=== PATIENT | female | born 1995 | race Caucasian/White ===

== ENCOUNTER 2018-10-10 19:10 | Emergency (ER) | payer SELFPAY ==
[~2018-10-10] VITALS: Ht 157.5 cm; Wt 95.5 kg
[2018-10-10 19:27] VITALS: Ht 157.5 cm; Wt 95.5 kg
[2018-10-10] MEDS ORDERED: IBUPROFEN 600 MG TAB PO ONE (22:00)
[2018-10-10] MEDS ORDERED: IBUP-1542 PO (23:31)
[2018-10-10 23:35] VITALS: BP 117/61; PULSE 67; RESP 18
--- NOTE | 2018-10-10 23:38 | ERD ---
ER Documentation Chief Complaint Chief Complaint LOWER AP X'S 1 DAY HPI Patient is a 23-year-old female, no past medical history, presents to the ER for concerns of pelvic pain x1 day. Patient denies fevers or chills. Patient denie s any nausea or vomiting. Patient states the pain is localized to her site. Patient had a 5 months ago. Patient does admit to dysuria however she denies any frequency, urgency or flank pain. Patient denies any vaginal bleeding however states she does have irregular periods. Last menstrual period was 2 months ago. Patient denies any nausea, vomiting, or diarrhea. Patient denies any chest pain or shortness of breath. Patient has not taken any medications for symptoms. ROS All systems reviewed and are negative except as per history of present illness. Medications Home Meds Active Scripts Ibuprofen* (Motrin*) 600 Mg Tab, 600 MG PO Q6, #30 TAB Prov:NING TALLEY PA-C 10/10/18 Allergies Allergies: Coded Allergies: No Known Allergy (Unverified , 10/10/18) PMhx/Soc History of Surgery: Yes () Hx Alcohol Use: No Hx Substance Use: No Hx Tobacco Use: No Smoking Status: Never smoker FmHx Family History: No diabetes Physical Exam Vitals Vital Signs Date Temp Pulse Resp B/P (MAP) Pulse Ox O2 O2 Flow FiO2 Time Delivery Rate 10/10/18 98.0 76 18 116/71 97 19:27 (86) Physical Exam GENERAL: Well-developed, well-nourished female. Appears in no acute distress. HEAD: Normocephalic, atraumatic. EYES: Pupils are equally reactive bilaterally. EOMs grossly intact. No conjunctival erythema. ENT: Moist mucous membranes. No uvula deviation. No kissing tonsils. NECK: Supple. No meningismus. Normal range of motion of the neck. LUNG: Clear to auscultation bilaterally. No rhonchi, wheezing, rales or coarse breath sounds. HEART: Regular rate and rhythm. No murmurs, rubs or gallops. ABDOMEN: line appears to be healing well. No erythema or warmth. Wound dehiscence. Tender to palpation in the suprapubic region. Soft, and nondistended. Positive bowel sounds in all four quadrants. No rebound tenderness, no guarding. (-) McBurney's point tenderness. No CVA tenderness. EXTREMITIES: Equal pulses bilaterally. No peripheral clubbing, cyanosis or edema. No unilateral leg swelling. NEUROLOGIC: Alert and oriented. Moving all four extremities without any difficulty. Normal speech. Steady gait. SKIN: Normal color. Warm and dry. No rashes or lesions. Result Diagram: 10/10/18215410/10/182154 Results 24 hrs Laboratory Tests Test 10/10/18 21:34 10/10/18 21:35 10/10/18 21:55 10/10/18 21:56 POC Beta HCG, NEGATIVE NEGATIVE Qualitative Bedside Urine pH 5.5 (LAB) Bedside Urine Negative Protein (LAB) Bedside Urine Negative Glucose (UA) Bedside Urine Negative Ketones (LAB) Bedside Urine Blood 1+ Bedside Urine Negative Nitrite (LAB) Bedside Urine Negative Leukocyte Esterase (L White Blood Count 10.6 10^3/ul Red Blood Count 4.96 10^6/ul Hemoglobin 13.8 g/dl Hematocrit 41.6 % Mean Corpuscular 83.9 fl Volume Mean Corpuscular 27.8 pg Hemoglobin Mean Corpuscular 33.2 g/dl Hemoglobin Concent Red Cell 12.5 % Distribution Width Platelet Count 332 10^3/UL Mean Platelet 11.2 fl Volume Immature 0.400 % Granulocytes % Neutrophils % 71.7 % Lymphocytes % 21.4 % Monocytes % 4.7 % Eosinophils % 1.5 % Basophils % 0.3 % Nucleated Red Blood 0.0 /100WBC Cells % Immature 0.040 10^3/ul Granulocytes # Neutrophils # 7.6 10^3/ul Lymphocytes # 2.3 10^3/ul Monocytes # 0.5 10^3/ul Eosinophils # 0.2 10^3/ul Basophils # 0.0 10^3/ul Nucleated Red Blood 0.0 10^3/ul Cells # Sodium Level 139 mmol/L Potassium Level 4.4 mmol/L Chloride Level 104 mmol/L Carbon Dioxide 26 mmol/L Level Anion Gap 9 Blood Urea Nitrogen 13 mg/dl Creatinine 0.76 mg/dl Est Glomerular > 60 mL/min Filtrat Rate mL/min Glucose Level 102 mg/dl Calcium Level 9.9 mg/dl Total Bilirubin 0.3 mg/dl Direct Bilirubin 0.00 mg/dl Indirect Bilirubin 0.3 mg/dl Aspartate Amino 42 IU/L Transf (AST/SGOT) Alanine 59 IU/L Aminotransferase (A LT/SGPT) Alkaline 99 IU/L Phosphatase Total Protein 7.8 g/dl Albumin 4.5 g/dl Globulin 3.30 g/dl Albumin/Globulin 1.36 Ratio Lipase 85 U/L Test 10/10/18 21:57 Bedside Urine pH 5.5 (LAB) Bedside Urine Negative Protein (LAB) Bedside Urine Negative Glucose (UA) Bedside Urine Negative Ketones (LAB) Bedside Urine Blood 1+ Bedside Urine Negative Nitrite (LAB) Bedside Urine Negative Leukocyte Esterase (L Current Medications Medications Dose Sig/Portillo Start Time Status Last (Trade) Ordered Route PRN Stop Time Admin Dose Reason Admin Ibuprofen 600 mg ONCE ONCE 10/10/18 DC 10/10/18 (Motrin) PO 22:00 21:54 10/10/18 22:01 Procedures/MDM ED COURSE: The patient was stable throughout ED course. I kept the patient and/or family informed of laboratory and diagnostic imaging results throughout the ED course. DIAGNOSTIC IMAGING: Read by radiologist. DIAGNOSTIC IMAGING REPORT Patient: DAMIAN RUFF : 1995 Age: 23 Sex: F MR #: [id number] DOS: 10/10/18 2148 Ordering MD: NING TALLEY PA-C Location: [facility] Room/Bed: PROCEDURE: US Pelvis CLINICAL INDICATION: Pelvic pain. TECHNIQUE: Sonographic evaluation of the pelvis was performed utilizing both transabdominal and transvaginal technique. Curved array transabdominal transducer technique as well as a high frequency endovaginal probe was utilized. Images were reviewed on the high-resolution PACS workstation. COMPARISON: No prior studies are available for comparison. FINDINGS: The uterus is the visualized and measuring 6 x 3.2 x 4.7 cm in dimension. The endometrium measures 0.8 cm in diameter. The right ovary measures 3.1 x 2 x 3.5 cm and 11.4 cc in volume. The left ovary measures 3.3 x 2.5 x 3.6 cm and 15.9 cc in volume. There are no adnexal ma sses. There is no significant free fluid in the pelvis. Nabothian cysts are seen in the cervix. IMPRESSION: 1. Unremarkable pelvic ultrasound. 2. Nabothian cervical cysts. RPTAT: HH .Dalia Reyes MD, MD Date Time Electronically viewed and signed by .Dalia Reyes MD, MD on 10/10/2018 23:13 .N/ CC: NING TALLEY PA-C [id number] PROCEDURES: None. MEDICAL DECISION MAKING: This is a 23-year-old female who presents to the ER for concerns of pelvic pain x1 day. Vital signs were reviewed. Patient is afebrile. CBC showed no evidence of systemic infection or severe anemia. CMP showed no evidence of electrolyte abnormalities, severe acidosis, alkalosis, renal failure, or liver disease. Lipase showed no evidence of acute pancreatitis. UA showed no evidence of acute infection, 1+ blood was noted.. Urine test was negative. Pelvic ultrasound was unremarkable. See formal report above. At this time, patient's presentation is most consistent with pelvic pain. Differential diagnosis include was not limited to acute coronary syndrome, AAA, mesenteric ischemia, lower lobe pneumonia, DKA, bowel perforation, cholecystitis, choledocholithiasis, ascending cholangitis, hepatic abscess, pancreatitis, PUD, gastritis, GERD, splenic rupture, diverticulitis, UTI, pyelonephritis, nephrolithiasis, appendicitis, constipation, , ectopic , PID, ovarian torsion or tubo-ovarian abscess. PRESCRIPTIONS: Ibuprofen DISCHARGE: At this time, patient is stable for discharge and outpatient management. I have instructed the patient to follow-up with his/her primary care physician in 1-2 days. I have instructed the patient to promptly return to the ER at any time for any new or worsening symptoms including increased pain, nausea, vomiting, diar magnolia, fever, weakness or LOC. The patient and/or family expressed understanding of and agreement with this plan. All questions were answered. Home care instructions were provided. Disclaimer: Inadvertent spelling and grammatical errors are likely due to EHR/dictation software use and do not reflect on the overall quality of patient care. Also, please note that the electronic time recorded on this note does not necessarily reflect the actual time of the patient encounter. Departure Diagnosis: Primary Impression: Pelvic pain Condition: Fair Patient Instructions: Pelvic Pain, Unknown Cause Referrals: [facility] YOU HAVE RECEIVED A MEDICAL SCREENING EXAM AND THE RESULTS INDICATE THAT YOU DO NOT HAVE A CONDITION THAT REQUIRES URGENT TREATMENT IN THE EMERGENCY DEPARTMENT. FURTHER EVALUATION AND TREATMENT OF YOUR CONDITION CAN WAIT UNTIL YOU ARE SEEN IN YOUR DOCTORS OFFICE WITHIN THE NEXT 1-2 DAYS. IT IS YOUR RESPONSIBILITY TO MAKE AN APPOINTMENT FOR FOLOW-UP CARE. IF YOU HAVE A PRIMARY DOCTOR --you should call your primary doctor and schedule an appointment IF YOU DO NOT HAVE A PRIMARY DOCTOR YOU CAN CALL OUR PHYSICIAN REFERRAL HOTLINE AT IF YOU CAN NOT AFFORD TO SEE A PHYSICIAN YOU CAN CHOSE FROM THE FOLLOWING [facility] [address] [facility]. [facility] [address] [facility]. [facility] [address] [facility] [address] [address] [facility] [address] [facility]. [facility] [address] [facility]. [facility] YOU HAVE RECEIVED A MEDICAL SCREENING EXAM AND THE RESULTS INDICATE THAT YOU DO NOT HAVE A CONDITION THAT REQUIRES URGENT TREATMENT IN THE EMERGENCY DEPARTMENT. FURTHER EVALUATION AND TREATMENT OF YOUR CONDITION CAN WAIT UNTIL YOU ARE SEEN IN YOUR DOCTORS OFFICE WITHIN THE NEXT 1-2 DAYS. IT IS YOUR RESPONSIBILITY TO MAKE AN APPOINTMENT FOR FOLOW-UP CARE. IF YOU HAVE A PRIMARY DOCTOR --you should call your primary doctor and schedule and appointment IF YOU DO NOT HAVE A PRIMARY DOCTOR YOU CAN CALL OUR PHYSICIAN REFERRAL HOTLINE AT . IF YOU CAN NOT AFFORD TO SEE A PHYSICIAN YOU CAN CHOSE FROM THE FOLLOWING [facility] INSTITUTIONS: [facility] [address] [place] [address] [facility] [address] [place] [address] [facility] [address] [place] [address] [employer] [place] [address] [facility] [address] [place] [address] OFFICE FAX , JENN [address] [place], [place] [id number], [place] [address] [place] [address] [address] ESCAM[address]A, [facility] [address], [address], [facility] [address] [address], [facility] [address] [facility], [place] [address] [facility] [address] [place] [address] [phone] [facility] [address] - [address] DU[address], [place] [address] [facility]. [address], [facility] [address] [address] CHANEY, [facility] [address] [facility]. [address], [facility] [address] [address] PIZANO, [facility] [address] [place], [place] [id number] Additional Instructions: Call your primary care doctor TOMORROW for an appointment during the next 1-2 days.See the doctor sooner or return here if your condition worsens before your appointment time. NING TALLEY PA-C Oct 10, 2018 23:38
== END 2018-10-10 23:35 | disposition home or self-care (01) ==
LOC: FTE 19:10
DX: R10.2 Pelvic and perineal pain (principal)
CPT/HCPCS: 36415; 76830; 76856; 80053; 81003; 81025; 83690; 85025